=== PATIENT | female | born 1995 | race African-American/Black ===

== ENCOUNTER 2017-11-04 04:09 | Emergency (ER) | payer OTHER ==
[~2017-11-04] VITALS: Ht 162.6 cm; Wt 90.7 kg
== END 2017-11-04 11:28 | disposition home or self-care (01) ==
LOC: ER 04:09
DX: J06.9 Acute upper respiratory infection, unspecified (principal)

== ENCOUNTER 2024-02-20 01:02 | Outpatient (CLI) | payer OTHER ==
[~2024-02-20] VITALS: Ht 160 cm; Wt 104.3 kg
[2024-02-20] MEDS ORDERED: CHILDREN'S ASPI81 MG (01:10)
[2024-02-20] MEDS ORDERED: PRENATAL TABLE1 EAC1 (01:10)
== END 2024-02-20 18:24 | disposition home or self-care (01) ==
LOC: OBS/DEL 01:02
PROVIDERS: ATTEND Obstetrics & Gynecology
DX: O26.892 Other specified pregnancy related conditions, second trimester (principal); O47.02 False labor before 37 completed weeks of gestation, second trimester; Z3A.27 27 weeks gestation of pregnancy; R10.2 Pelvic and perineal pain

== ENCOUNTER 2024-03-06 08:45 | Outpatient (CLI) | payer OTHER ==
[~2024-03-06 08:45] MED LIST: CHILDREN'S ASPI81 MG; PRENATAL TABLE1 EAC1
== END 2024-03-06 08:46 | disposition home or self-care (01) ==
LOC: PRENATAL 08:45
PROVIDERS: ATTEND Obstetrics & Gynecology Maternal & Fetal Medicine
DX: O26.843 Uterine size-date discrepancy, third trimester (principal); O36.8130 Decreased fetal movements, third trimester, not applicable or unspecified; O99.213 Obesity complicating pregnancy, third trimester; O43.93 Unspecified placental disorder, third trimester; Z3A.29 29 weeks gestation of pregnancy

== ENCOUNTER 2024-04-15 12:25 | Inpatient (IN) | payer OTHER ==
[~2024-04-15] VITALS: Ht 160 cm; Wt 103.4 kg
[2024-04-15] MEDS ORDERED: NIFEDIPINE 30 MG TAB.SA.OSM PO ONE (12:59)
[2024-04-15] MEDS ORDERED: BETAMETHASONE ACETATE,SOD PHOS 30 MG/5 ML ML ONE (13:00)
[2024-04-15] MEDS ORDERED: AMPICILLIN SODIUM 2,000 MG VIAL ONE (13:01)
[2024-04-15 13:07] LABS: PH,URINE 7.5 (5.0-8.0); URINE APPEARANCE Clear; URINE BILIRRUBIN Negative (NEGATIVE); URINE BLOOD Negative; URINE COLOR Yellow; URINE GLUCOSE Negative (NEGATIVE); URINE KETONE Trace (NEGATIVE); URINE LEUKOCYTE Moderate; URINE NITRATE Negative; URINE PROTEIN Trace (NEGATIVE)
[2024-04-15 13:11] LABS: URINE BACTERIA 7928.8 uL (0.0-1933); URINE CAST 1.52 uL (0.0-1.40); URINE EPITHELIAL CELLS 22.1 uL (0.0-38.8); URINE RBC 15.4 uL (0.0-20.8); URINE WBC 195.8 uL (0.0-23.2)
[2024-04-15] MEDS ORDERED: NIFEDIPINE 30 MG TAB.SA.OSM PO STA (13:17)
[2024-04-15 13:23] LABS: HEMOGLOBIN 10.9 g/dL (12.0-15.00); MEAN CORPUSCULAR HEMOGLOBIN 26.8 pg (27.00-32.0); MEAN CORPUSCULAR HGB CONC 33.1 g/dl (32.0-36.0); PLATELET COUNT 245 K/uL (150-450); RED BLOOD COUNT 4.08 M/uL (4.00-6.00); RED CELL DISTRIBUTION WIDTH 14.7 % (11.5-14.5)
[2024-04-15] MEDS ORDERED: AMPICILLIN SODIUM 2,000 MG VIAL IV ONE (13:30)
[2024-04-15] MEDS ORDERED: RINGERS SOLUTION,LACTATED 1,000 ML IV SCH (13:30)
[2024-04-15] MEDS ORDERED: BETAMETHASONE ACETATE,SOD PHOS 30 MG/5 ML ML IM ONE (13:30)
[2024-04-15 13:33] LABS: ALBUMIN 2.5 gm/dL (3.4-5.0); BILIRUBIN TOTAL 0.39 mg/dL (0.3-1.2); CREATININE SERUM 0.3 mg/dL (0.55-1.02); GFR 268.91; GLOBULINA 3.1 G/DL (2.4-3.5); POTASSIUM 3.97 mEq/L (3.5-5.1); TOTAL PROTEIN 5.6 gm/dL (6.4-8.2)
[2024-04-15 13:40] LABS: INR 0.94; PARTIAL THROMBOPLASTIN TIME 26.8 SECONDS (22.0-34.0); PROTHROMBIN TIME 10.3 SECONDS (9.0-11.5)
[2024-04-15] MEDS ORDERED: AMPICILLIN SODIUM 1,000 MG VIAL IV SCH (14:00)
[2024-04-16] MEDS ORDERED: ASPIRIN 81 MG TAB.CHEW PO SCH (09:00)
[2024-04-16] MEDS ORDERED: NIFEDIPINE 30 MG TAB.SA.OSM PO SCH ×2 (09:00)
[2024-04-16] MEDS ORDERED: BETAMETHASONE ACETATE,SOD PHOS 30 MG/5 ML ML IM NR (13:15)
[2024-04-16] MEDS ORDERED: ACETAMINOPHEN 500 MG GEL..CAP PO PRN (14:45)
[2024-04-17] MEDS ORDERED: NIFEDIPINE20 MG PO (09:18)
== END 2024-04-17 11:48 | disposition home or self-care (01) | DRG 833 ==
LOC: LDR 12:25 → OB/GYN 04-16 16:06
PROVIDERS: ADMIT Obstetrics & Gynecology; ATTEND Obstetrics & Gynecology
PROC: 4A1HXCZ Monitoring of Products of Conception, Cardiac Rate, External Approach (ICD-10-PCS; principal; 2024-04-15)
PROC: BY4FZZZ Ultrasonography of Third Trimester, Single Fetus (ICD-10-PCS; 2024-04-15)
PROC: BU4CZZZ Ultrasonography of Uterus and Ovaries (ICD-10-PCS; 2024-04-15)
DX: O60.03 Preterm labor without delivery, third trimester (principal); O26.843 Uterine size-date discrepancy, third trimester; O36.8130 Decreased fetal movements, third trimester, not applicable or unspecified; O43.93 Unspecified placental disorder, third trimester; Z3A.35 35 weeks gestation of pregnancy; Z20.822 Contact with and (suspected) exposure to COVID-19

== ENCOUNTER 2024-04-29 13:44 | Inpatient (IN) | payer OTHER ==
[~2024-04-29] VITALS: Ht 160 cm; Wt 101.6 kg
[2024-04-29 13:30] VITALS: BP 125/67
[~2024-04-29 13:44] MED LIST changes: +NIFEDIPINE20 MG PO
[2024-04-29] MEDS ORDERED: RINGERS SOLUTION,LACTATED 1,000 ML IV SCH (14:15)
[2024-04-29 15:36] LABS: HEMATOCRIT 37.4 % (36.0-45.00); MEAN CELL VOLUME 79.8 fL (80.00-100.00); MEAN CORPUSCULAR HEMOGLOBIN 25.6 pg (27.00-32.0); PLATELET COUNT 271 K/uL (150-450); RED BLOOD COUNT 4.68 M/uL (4.00-6.00); RED CELL DISTRIBUTION WIDTH 15.7 % (11.5-14.5)
[2024-04-29 15:41] LABS: INR 0.94; PARTIAL THROMBOPLASTIN TIME 25.9 SECONDS (22.0-34.0); PROTHROMBIN TIME 10.3 SECONDS (9.0-11.5)
[2024-04-29 15:42] VITALS: BP 100/66
[2024-04-29 15:47] LABS: ALBUMIN 2.8 gm/dL (3.4-5.0); BILIRUBIN TOTAL 0.41 mg/dL (0.3-1.2); CALCIUM 9.6 mg/dL (8.5-10.1); CREATININE SERUM 0.41 mg/dL (0.55-1.02); GFR 186.09; GLOBULINA 3.5 G/DL (2.4-3.5); POTASSIUM 4.05 mEq/L (3.5-5.1); TOTAL PROTEIN 6.3 gm/dL (6.4-8.2)
[2024-04-29 16:55] LABS: PH,URINE 5.5 (5.0-8.0); URINE APPEARANCE Clear; URINE BILIRRUBIN Negative (NEGATIVE); URINE BLOOD Negative; URINE COLOR Yellow; URINE GLUCOSE Negative (NEGATIVE); URINE LEUKOCYTE Small; URINE NITRATE Negative; URINE PROTEIN Trace (NEGATIVE)
[2024-04-29 16:58] LABS: URINE BACTERIA 8833.8 uL (0.0-1933); URINE EPITHELIAL CELLS 40.6 uL (0.0-38.8); URINE RBC 58.6 uL (0.0-20.8); URINE WBC 99.7 uL (0.0-23.2)
[2024-04-29 17:07] LABS: URINE CAST 1.37 uL (0.0-1.40); URINE KETONE 80 (NEGATIVE)
[2024-04-29] MEDS ORDERED: OXYTOCIN 10 UNITS/ML VIAL ONE (19:00)
[2024-04-29] MEDS ORDERED: CEFAZOLIN SODIUM 1,000 MG VIAL IV SCH (19:00)
[2024-04-29] MEDS ORDERED: ERYTHROMYCIN BASE OPHT 1GM EACH TUBE OP ONE (19:01)
[2024-04-29] MEDS ORDERED: CEFAZOLIN SODIUM 1,000 MG VIAL ONE (20:04)
[2024-04-29] MEDS ORDERED: MEPERIDINE HCL/PF 50 MG/ML VIAL IM PRN (22:00)
[2024-04-29] MEDS ORDERED: PROMETHAZINE HCL 50 MG/ML AMPUL IM PRN (22:00)
[2024-04-29] MEDS ORDERED: OXYTOCIN 1,000 ML IV SCH (22:00)
[2024-04-29] MEDS ORDERED: NAPROXEN 500 MG TABLET PO PRN (22:00)
[2024-04-29] MEDS ORDERED: MORPHINE SULFATE 4 MG/ML VIAL IV ONE (22:20)
[2024-04-30] MEDS ORDERED: OXYTOCIN 10 UNITS/ML VIAL ONE (02:05)
[2024-04-30 02:38] VITALS: BP 112/77
[2024-04-30] MEDS ORDERED: ACETAMINOPHEN WITH CODEINE 1 UDTAB TABLET PO PRN (06:00)
[2024-04-30 07:18] LABS: HEMATOCRIT 35.2 % (36.0-45.00); HEMOGLOBIN 11.5 g/dL (12.0-15.00); MEAN CELL VOLUME 79.6 fL (80.00-100.00); MEAN CORPUSCULAR HEMOGLOBIN 26.1 pg (27.00-32.0); MEAN CORPUSCULAR HGB CONC 32.8 g/dl (32.0-36.0); PLATELET COUNT 241 K/uL (150-450); RED BLOOD COUNT 4.42 M/uL (4.00-6.00); RED CELL DISTRIBUTION WIDTH 15.6 % (11.5-14.5)
[2024-04-30 08:39] VITALS: BP 117/81
[2024-04-30] MEDS ORDERED: SIMETHICONE 125 MG CAPSULE PO SCH (09:00)
[2024-04-30 13:54] VITALS: BP 124/80
[2024-04-30] MEDS ORDERED: DOCUSATE SODIUM 100MG CAP PO SCH (17:00)
[2024-04-30 17:34] VITALS: BP 108/77
[2024-04-30 21:07] VITALS: BP 123/84
[2024-05-01 00:22] VITALS: BP 91/63
[2024-05-01 04:30] VITALS: BP 100/68
[2024-05-01 09:11] VITALS: BP 109/78
[2024-05-01 12:55] VITALS: BP 107/62
[2024-05-01 18:09] VITALS: BP 105/70
[2024-05-02] VITALS: BP 90/62
[2024-05-02] MEDS ORDERED: Tylenol #3 PO (08:40)
[2024-05-02] MEDS ORDERED: NAPR500T14 PO (08:40)
[2024-05-02 08:50] VITALS: BP 128/71
== END 2024-05-02 13:27 | disposition home or self-care (01) | DRG 788 ==
LOC: LDR 13:44 → O/R 21:25 → OB/GYN 22:46
PROVIDERS: ADMIT Obstetrics & Gynecology; ATTEND Obstetrics & Gynecology
PROC: 4A1HXCZ Monitoring of Products of Conception, Cardiac Rate, External Approach (ICD-10-PCS; 2024-04-29)
PROC: 10D00Z1 Extraction of Products of Conception, Low, Open Approach (ICD-10-PCS; principal; 2024-04-29 19:15)
DX: O62.2 Other uterine inertia (principal); Z3A.37 37 weeks gestation of pregnancy; Z37.0 Single live birth; Z20.822 Contact with and (suspected) exposure to COVID-19